=== PATIENT | male | born 1965 | race Caucasian/White ===

== ENCOUNTER 2016-10-19 00:56 | Emergency (ER) | payer SELFPAY ==
[2016-10-19 04:19] VITALS: BP 162/90
== END 2016-10-19 04:00 | disposition home or self-care (01) ==
LOC: ED 00:56
DX: S46.912A Strain of unspecified muscle, fascia and tendon at shoulder and upper arm level, left arm, initial encounter (principal); W18.30XA Fall on same level, unspecified, initial encounter; Y93.89 Activity, other specified; Y99.8 Other external cause status; Y92.89 Other specified places as the place of occurrence of the external cause